=== PATIENT | male | born 1960 | race Caucasian/White ===

== ENCOUNTER → 2017-02-06 | Day surgery (SDC) | payer BC ==
[~2017-02-06] MED LIST: AMITRYPTYLINE PO; LOSARTAN-HCTZ1 EAC1 PO; METOPROLOL SUCC25 MG PO
--- NOTE | ~2017-02-06 | HP ---
Unit #: [id number] #: [id number] Patient: WILBER YUN [id number] [address] [address] [id number] O MR#: [id number] NAME: WILBER YUN. ROOM: Age: 56 Sex: M Admission Date: 02/06/2017 : 1960 Attending Physician: Bassam Castrejon M.D. Primary Care Physician: Soledad Bowling M.D. HISTORY AND PHYSICAL HISTORY AND EXAM Mr. Yun is a 56-year-old gentleman who is sent for colonoscopy for colorectal cancer screening. Patient states he had a colonoscopy 17 years ago and had polyps but failed to follow up. He has a family history of colon cancer in his father. He currently denies any significant symptoms. PAST MEDICAL HISTORY 1. Reflux. 2. Type 2 diabetes. 3. Hypertension. 4. Osteoarthritis. 5. Hypercholesterolemia. 6. Depression. 7. Anxiety. 8. He has had a previous stroke with no residual effects. 9. He has occasional urinary incontinence. 10. He has chronic back pain. 11. He has had a lumbar diskectomy in 2003. 12. Previous hernia repair. 13. Left shoulder surgery. ALLERGIES He is allergic to unspecified pain medications. He is uncertain of which ones. MEDICATIONS Current medications include: 1. Elavil. 2. Metoprolol. 3. Losartan. Immunizations are up to date. He has had a recent flu vaccine but not a pneumonia vaccine. FAMILY HISTORY Colon cancer in his father. Sinus cancer that eroded into the brain in his mother. Esophageal cancer in his brother. Kidney cancer in his brother. Breast cancer in his sister. SOCIAL HISTORY Single, one child. Social alcohol drinker. Two pack a day smoker. He is currently on disability. PHYSICAL EXAMINATION Unit #: [id number] #: [id number] Patient: WILBER YUN GENERAL: He is awake, alert and oriented. VITAL SIGNS: Blood pressure 120/78, heart rate 70 and regular, respirations 16 and unlabored. He is afebrile. HEENT: Unremarkable. CARDIAC EXAM: Regular rhythm. LUNGS: Clear. ABDOMEN: Soft. EXTREMITIES: No edema. NEUROLOGICAL: Grossly intact. ASSESSMENT AND PLAN 56-year-old gentleman with a history of polyps of the colon. There is a family history of colon cancer in his father. He is due for colorectal cancer surveillance. I discussed colonoscopy including risks, benefits, complications, bowel prep. He understands and agrees to proceed. Dictated by Adryan Stevenson TD: 02/06/2017 07:39 JOB #: [id number] HISTORY AND PHYSICAL Page 1 of 1 X Bassma Castrejon MD X HISTORY AND PHYSICAL
--- NOTE | ~2017-02-06 | OR ---
Unit #: [id number] #: [id number] Patient: WILBER COLINDRES [id number] [facility] [address]. [place], [place] [address] [id number] O MR#: [id number] NAME: WILBER COLINDRES. ROOM: Date of Procedure: 02/06/2017 Admission Date: 02/06/2017 Surgeon: Bassam Castrejon M.D. : 1960 Attending Physician: Bassam Castrejon M.D. Primary Care Physician: Soledad Bowling M.D. OPERATIVE REPORT PRIMARY CARE PHYSICIAN Soledad Bowling M.D. PREOPERATIVE DIAGNOSES Personal history of adenomatous polyps of colon and a family history of colon cancer in his father. POSTOPERATIVE DIAGNOSIS Pedunculated polyp at 25 cm from the anal verge. PROCEDURE PERFORMED Colonoscopy to cecum with snare polypectomy x1. ANESTHESIA Monitored anesthesia. INDICATIONS FOR PROCEDURE A 56-year-old gentleman, who had a colonoscopy 17 years ago and reports he had polyps. He has a father who had colon cancer. He also has several other family members with differing cancers. He is currently asymptomatic, but was sent for surveillance colonoscopy for colorectal cancer screening. DESCRIPTION OF PROCEDURE The patient admitted to [facility], positively identified, and transported to the endoscopy unit and after appropriate monitoring and positioning, he was sedated by the anesthesiologist. On rectal examination, there was no local anorectal pathology and on digital examination, his prostate was normal and there were no palpable masses. Colonoscope was passed through the anal verge and throughout the extent of the colon to the cecum. The appendiceal orifice and ileocecal valve were photodocumented. On antegrade and retrograde visualization, a single polyp was identified that was pedunculated. It was in the sigmoid colon at approximately 25 cm from the anal verge. It was completely excised using the snare polypectomy forceps and recovered and sent to the laboratory. There was good hemostasis. The rest of the endoscopic evaluation was normal. The patient tolerated the procedure well and was transported to the recovery in stable condition. Findings were discussed with his family. We will call him with the results of the pathological evaluation of the polyp and recommend followup at that time. Unit #: [id number] #: [id number] Patient: WILBER COLINDRES Dictated by... Adryan Stevenson/marito TD: 02/06/2017 11:26 JOB #: [id number] OPERATIVE REPORT Page 1 of 1 X Bassam Castrejon MD PROCEDURE OPERATIVE NOTE
== END | disposition home or self-care (01) ==
LOC: COPS 05:21
DX: Z12.11 Encounter for screening for malignant neoplasm of colon (principal); D12.5 Benign neoplasm of sigmoid colon; K21.9 Gastro-esophageal reflux disease without esophagitis; E11.9 Type 2 diabetes mellitus without complications; I10 Essential (primary) hypertension; M19.90 Unspecified osteoarthritis, unspecified site; E78.00 Pure hypercholesterolemia, unspecified; F32.9 Major depressive disorder, single episode, unspecified; G89.29 Other chronic pain; M54.9 Dorsalgia, unspecified; F17.210 Nicotine dependence, cigarettes, uncomplicated; F41.9 Anxiety disorder, unspecified; Z86.73 Personal history of transient ischemic attack (TIA), and cerebral infarction without residual deficits; Z86.010 Personal history of colon polyps; Z80.0 Family history of malignant neoplasm of digestive organs; Z88.6 Allergy status to analgesic agent; Z98.890 Other specified postprocedural states
CPT/HCPCS: 82947; 88305